=== PATIENT | female | born 1960 | race African-American/Black ===

== ENCOUNTER 2017-06-23 19:25 | Inpatient (IN) ==
[2017-06-23] MEDS ORDERED: ACETAMINOPHEN 325 MG TABLET PO PRN (22:35)
[2017-06-23] MEDS: SODIUM CHLORIDE 0.9% 1,000 ML IV SCH (22:55)
[2017-06-23] MEDS: metroNIDAZOLE INJ 500 MG in PREMIX 1 EACH IV SCH (23:46)
[2017-06-24] MEDS: PIPERACILLIN/TAZOBACTAM 3,375 MG in SODIUM CHLORIDE 0.9% 100 ML IV SCH ×3 (01:47→17:32)
[2017-06-24] MEDS: HYDROmorphone 2 MG/1 ML VIAL IV PRN ×2 (01:51→20:08)
[2017-06-24] MEDS: metroNIDAZOLE INJ 500 MG in PREMIX 1 EACH IV SCH ×3 (06:27→22:50)
[2017-06-24 07:35] LABS: Basophils % 0.3 % (0.0-0.8); Eosinophils # 0.1 10*3/uL (0.0-0.87); Eosinophils % 0.6 % (0.00-10.9); Hematocrit 33.6 VOL% (35.7-47.0); Immature Granulocytes % 0.6 %; Immature Granulocytes Absolute 0.09 #; Lymphocytes % 6.7 % (21.3-54.2); Mean Corpuscular HGB Conc 32.7 GM/DL (32-36); Mean Corpuscular Hemoglobin 21 PG (27-34); Mean Corpuscular Volume 64.9 FL (87-102); Mean Platelet Volume 9.2 FL (9.6-12.0); Monocytes # 1.2 10*3/uL (0.11-0.8); Monocytes % 7.9 % (1.7-12.7); Neutrophils # 12.8 10*3/uL (1.4-7.4); Neutrophils % 83.9 % (38.7-73.9); Platelet Count 478 T/CUMM (130-400); Red Blood Count 5.18 MC/CUMM (3.8-5.5); Red Cell Distribution Width 14.5 % (9.3-17.3); White Blood Count 15.2 T/CUMM (4-12)
[2017-06-24 08:18] LABS: Albumin 2.6 G/DL (3.4-5.0); Bilirubin,Total 0.5 MG/DL (0.2-1.0); Calcium 8.4 MG/DL (8.5-10.1); Magnesium 2.1 MG/DL (1.8-2.4); Osmolality,Calculated 278.4 MOS/KG (273-304); Potassium 4.2 MMOL/L (3.5-5.1); Total Protein 6.7 G/DL (6.4-8.3)
[2017-06-24] MEDS: PANTOPRAZOLE 40 MG VIAL IV SCH (09:40)
[2017-06-24] MEDS: MELOXICAM 7.5 MG TABLET PO SCH (09:41)
[2017-06-24] MEDS: SODIUM CHLORIDE 0.9% 1,000 ML IV SCH (17:33)
[2017-06-24] MEDS: ONDANSETRON 4 MG/2 ML VIAL IV PRN (20:05)
[2017-06-25] MEDS: SODIUM CHLORIDE 0.9% 1,000 ML IV SCH ×4 (01:18→21:31)
[2017-06-25] MEDS: PIPERACILLIN/TAZOBACTAM 3,375 MG in SODIUM CHLORIDE 0.9% 100 ML IV SCH ×2 (02:59→10:52)
[2017-06-25 04:38] LABS: Basophils % 0.3 % (0.0-0.8); Eosinophils # 0.1 10*3/uL (0.0-0.87); Eosinophils % 1.1 % (0.00-10.9); Hematocrit 30.7 VOL% (35.7-47.0); Hemoglobin 10.1 GM/DL (12.0-16.0); Immature Granulocytes % 0.5 %; Immature Granulocytes Absolute 0.06 #; Lymphocytes # 1.6 10*3/uL (1.4-4.0); Lymphocytes % 12.5 % (21.3-54.2); Mean Corpuscular HGB Conc 32.9 GM/DL (32-36); Mean Corpuscular Hemoglobin 21 PG (27-34); Mean Corpuscular Volume 64.5 FL (87-102); Mean Platelet Volume 10.4 FL (9.6-12.0); Monocytes # 1.2 10*3/uL (0.11-0.8); Neutrophils # 9.9 10*3/uL (1.4-7.4); Neutrophils % 76.6 % (38.7-73.9); Platelet Count 496 T/CUMM (130-400); Red Blood Count 4.76 MC/CUMM (3.8-5.5); Red Cell Distribution Width 14.5 % (9.3-17.3)
[2017-06-25 05:22] LABS: Calcium 8.1 MG/DL (8.5-10.1); Magnesium 1.9 MG/DL (1.8-2.4); Osmolality,Calculated 280.1 MOS/KG (273-304); Potassium 3.8 MMOL/L (3.5-5.1)
[2017-06-25] MEDS: metroNIDAZOLE INJ 500 MG in PREMIX 1 EACH IV SCH ×2 (06:37→07:25)
[2017-06-25] MEDS: ONDANSETRON 4 MG/2 ML VIAL IV PRN ×3 (07:32→18:30)
[2017-06-25] MEDS: MELOXICAM 7.5 MG TABLET PO SCH (10:47)
[2017-06-25] MEDS: PANTOPRAZOLE 40 MG VIAL IV SCH (10:49)
[2017-06-25] MEDS: metroNIDAZOLE 500 MG TABLET PO SCH ×2 (17:05→21:27)
[2017-06-25] MEDS: CIPROFLOXACIN 500 MG TABLET PO SCH (21:27)
[2017-06-26] MEDS: ONDANSETRON 4 MG/2 ML VIAL IV PRN ×2 (00:29→10:23)
[2017-06-26] MEDS: metroNIDAZOLE 500 MG TABLET PO SCH ×2 (06:43→17:48)
[2017-06-26 07:07] LABS: Basophils % 0.3 % (0.0-0.8); Eosinophils # 0.1 10*3/uL (0.0-0.87); Eosinophils % 0.9 % (0.00-10.9); Hematocrit 31.9 VOL% (35.7-47.0); Hemoglobin 10.6 GM/DL (12.0-16.0); Immature Granulocytes % 0.6 %; Immature Granulocytes Absolute 0.07 #; Lymphocytes # 1.5 10*3/uL (1.4-4.0); Lymphocytes % 11.9 % (21.3-54.2); Mean Corpuscular HGB Conc 33.2 GM/DL (32-36); Mean Corpuscular Hemoglobin 21 PG (27-34); Mean Corpuscular Volume 64.1 FL (87-102); Mean Platelet Volume 9.8 FL (9.6-12.0); Monocytes # 0.8 10*3/uL (0.11-0.8); Monocytes % 6.6 % (1.7-12.7); Neutrophils # 9.8 10*3/uL (1.4-7.4); Neutrophils % 79.7 % (38.7-73.9); Platelet Count 512 T/CUMM (130-400); Red Blood Count 4.98 MC/CUMM (3.8-5.5); Red Cell Distribution Width 14.5 % (9.3-17.3); White Blood Count 12.2 T/CUMM (4-12)
[2017-06-26 07:26] LABS: Calcium 8.1 MG/DL (8.5-10.1); Magnesium 1.9 MG/DL (1.8-2.4); Osmolality,Calculated 275.4 MOS/KG (273-304); Potassium 3.6 MMOL/L (3.5-5.1)
[2017-06-26] MEDS: PANTOPRAZOLE 40 MG VIAL IV SCH (10:27)
[2017-06-26] MEDS: SODIUM CHLORIDE 0.9% 1,000 ML IV SCH (11:13)
[2017-06-26] MEDS ORDERED: PROMETHAZINE 25 MG/1 ML VIAL IM PRN (14:24)
[2017-06-26] MEDS: CIPROFLOXACIN 500 MG TABLET PO SCH (17:48)
[2017-06-26] MEDS: PIPERACILLIN/TAZOBACTAM 3,375 MG in SODIUM CHLORIDE 0.9% 100 ML IV SCH (18:37)
[2017-06-26] MEDS: MELOXICAM 7.5 MG TABLET PO SCH (19:22)
[2017-06-27] MEDS: PIPERACILLIN/TAZOBACTAM 3,375 MG in SODIUM CHLORIDE 0.9% 100 ML IV SCH ×3 (02:59→18:07)
[2017-06-27 05:29] LABS: Basophils % 0.3 % (0.0-0.8); Eosinophils # 0.1 10*3/uL (0.0-0.87); Eosinophils % 0.8 % (0.00-10.9); Hematocrit 32.4 VOL% (35.7-47.0); Hemoglobin 10.7 GM/DL (12.0-16.0); Immature Granulocytes % 0.5 %; Immature Granulocytes Absolute 0.06 #; Lymphocytes # 1.7 10*3/uL (1.4-4.0); Lymphocytes % 13.1 % (21.3-54.2); Magnesium 1.9 MG/DL (1.8-2.4); Mean Corpuscular Hemoglobin 21 PG (27-34); Mean Corpuscular Volume 64.5 FL (87-102); Mean Platelet Volume 9.8 FL (9.6-12.0); Monocytes # 1.1 10*3/uL (0.11-0.8); Monocytes % 8.5 % (1.7-12.7); Neutrophils # 10.1 10*3/uL (1.4-7.4); Neutrophils % 76.8 % (38.7-73.9); Osmolality,Calculated 277.3 MOS/KG (273-304); Platelet Count 511 T/CUMM (130-400); Potassium 3.5 MMOL/L (3.5-5.1); Red Blood Count 5.02 MC/CUMM (3.8-5.5); Red Cell Distribution Width 14.6 % (9.3-17.3); White Blood Count 13.2 T/CUMM (4-12)
[2017-06-27] MEDS: MELOXICAM 7.5 MG TABLET PO SCH (09:40)
[2017-06-27] MEDS: PANTOPRAZOLE 40 MG VIAL IV SCH (12:56)
[2017-06-27] MEDS: SODIUM CHLORIDE 0.9% 1,000 ML IV SCH (13:02)
[2017-06-27] MEDS: ONDANSETRON 4 MG/2 ML VIAL IV PRN (14:47)
[2017-06-28] MEDS: ONDANSETRON 4 MG/2 ML VIAL IV PRN ×2 (02:02→09:21)
[2017-06-28] MEDS: PIPERACILLIN/TAZOBACTAM 3,375 MG in SODIUM CHLORIDE 0.9% 100 ML IV SCH ×3 (02:05→17:30)
[2017-06-28] MEDS: SODIUM CHLORIDE 0.9% 1,000 ML IV SCH ×3 (06:44→22:10)
[2017-06-28] MEDS: MELOXICAM 7.5 MG TABLET PO SCH (09:08)
[2017-06-28] MEDS: PANTOPRAZOLE 40 MG VIAL IV SCH (09:08)
[2017-06-28] MEDS ORDERED: DIAZEPAM 5 MG TABLET PO ONE (12:19)
[2017-06-28] MEDS ORDERED: fentaNYL 100 MCG/2 ML VIAL IV ONE (12:19)
[2017-06-28] MEDS ORDERED: MIDAZOLAM 2 MG/2 ML VIAL IV ONE (12:19)
[2017-06-28] MEDS: HYDROmorphone 2 MG/1 ML VIAL IV PRN ×2 (15:00→21:45)
[2017-06-28] MEDS ORDERED: HYDROmorphone 2 MG/1 ML VIAL ONE (15:01)
[2017-06-29] MEDS: PIPERACILLIN/TAZOBACTAM 3,375 MG in SODIUM CHLORIDE 0.9% 100 ML IV SCH ×3 (02:59→17:27)
[2017-06-29 05:13] LABS: Basophils % 0.3 % (0.0-0.8); Eosinophils # 0.1 10*3/uL (0.0-0.87); Hematocrit 33.4 VOL% (35.7-47.0); Immature Granulocytes % 0.6 %; Immature Granulocytes Absolute 0.08 #; Lymphocytes # 1.5 10*3/uL (1.4-4.0); Lymphocytes % 10.4 % (21.3-54.2); Mean Corpuscular HGB Conc 32.9 GM/DL (32-36); Mean Corpuscular Hemoglobin 21 PG (27-34); Mean Corpuscular Volume 64.6 FL (87-102); Mean Platelet Volume 9.6 FL (9.6-12.0); Monocytes # 0.8 10*3/uL (0.11-0.8); Neutrophils # 11.4 10*3/uL (1.4-7.4); Neutrophils % 81.7 % (38.7-73.9); Platelet Count 499 T/CUMM (130-400); Red Blood Count 5.17 MC/CUMM (3.8-5.5); Red Cell Distribution Width 14.7 % (9.3-17.3)
[2017-06-29 05:51] LABS: Calcium 8.5 MG/DL (8.5-10.1); Magnesium 1.9 MG/DL (1.8-2.4); Osmolality,Calculated 280.1 MOS/KG (273-304); Potassium 3.6 MMOL/L (3.5-5.1)
[2017-06-29] MEDS: MELOXICAM 7.5 MG TABLET PO SCH (09:14)
[2017-06-29] MEDS: PANTOPRAZOLE 40 MG VIAL IV SCH (09:15)
[2017-06-29] MEDS: ONDANSETRON 4 MG/2 ML VIAL IV PRN (20:34)
[2017-06-30] MEDS: PIPERACILLIN/TAZOBACTAM 3,375 MG in SODIUM CHLORIDE 0.9% 100 ML IV SCH ×2 (01:22→11:21)
[2017-06-30 06:20] LABS: Basophils % 0.1 % (0.0-0.8); Eosinophils # 0.1 10*3/uL (0.0-0.87); Eosinophils % 0.7 % (0.00-10.9); Hematocrit 33.4 VOL% (35.7-47.0); Hemoglobin 11.1 GM/DL (12.0-16.0); Immature Granulocytes % 0.6 %; Immature Granulocytes Absolute 0.08 #; Lymphocytes # 1.3 10*3/uL (1.4-4.0); Lymphocytes % 9.1 % (21.3-54.2); Mean Corpuscular HGB Conc 33.2 GM/DL (32-36); Mean Corpuscular Hemoglobin 21 PG (27-34); Mean Platelet Volume 10.1 FL (9.6-12.0); Monocytes # 0.8 10*3/uL (0.11-0.8); Monocytes % 5.8 % (1.7-12.7); Neutrophils # 11.7 10*3/uL (1.4-7.4); Neutrophils % 83.7 % (38.7-73.9); Platelet Count 525 T/CUMM (130-400); Red Blood Count 5.22 MC/CUMM (3.8-5.5); Red Cell Distribution Width 14.6 % (9.3-17.3); White Blood Count 13.9 T/CUMM (4-12)
[2017-06-30] MEDS: MELOXICAM 7.5 MG TABLET PO SCH (09:38)
[2017-06-30] MEDS: ONDANSETRON 4 MG/2 ML VIAL IV PRN ×2 (09:42→17:30)
[2017-06-30] MEDS: PANTOPRAZOLE 40 MG VIAL IV SCH (09:46)
[2017-06-30] MEDS: CIPROFLOXACIN INJ 400 MG in PREMIX 1 EACH IV SCH (18:52)
[2017-07-01] MEDS: CIPROFLOXACIN INJ 400 MG in PREMIX 1 EACH IV SCH (03:50)
[2017-07-01] MEDS: ONDANSETRON 4 MG/2 ML VIAL IV PRN ×2 (06:31→19:38)
[2017-07-01 06:54] LABS: Basophils % 0.3 % (0.0-0.8); Eosinophils # 0.2 10*3/uL (0.0-0.87); Eosinophils % 1.9 % (0.00-10.9); Hematocrit 32.7 VOL% (35.7-47.0); Immature Granulocytes % 0.6 %; Immature Granulocytes Absolute 0.06 #; Lymphocytes # 1.4 10*3/uL (1.4-4.0); Lymphocytes % 12.6 % (21.3-54.2); Mean Corpuscular HGB Conc 33.6 GM/DL (32-36); Mean Corpuscular Hemoglobin 21 PG (27-34); Mean Corpuscular Volume 63.4 FL (87-102); Mean Platelet Volume 9.1 FL (9.6-12.0); Monocytes # 0.8 10*3/uL (0.11-0.8); Monocytes % 6.9 % (1.7-12.7); Neutrophils # 8.4 10*3/uL (1.4-7.4); Neutrophils % 77.7 % (38.7-73.9); Platelet Count 455 T/CUMM (130-400); Red Blood Count 5.16 MC/CUMM (3.8-5.5); Red Cell Distribution Width 14.7 % (9.3-17.3); White Blood Count 10.8 T/CUMM (4-12)
[2017-07-01 07:29] LABS: Calcium 8.1 MG/DL (8.5-10.1); Magnesium 1.8 MG/DL (1.8-2.4); Osmolality,Calculated 273.5 MOS/KG (273-304); Potassium 3.5 MMOL/L (3.5-5.1)
[2017-07-01] MEDS: MELOXICAM 7.5 MG TABLET PO SCH (08:47)
[2017-07-01] MEDS: PANTOPRAZOLE 40 MG VIAL IV SCH (08:48)
[2017-07-01] MEDS: CIPROFLOXACIN 500 MG TABLET PO SCH (20:31)
[2017-07-02] MEDS: PANTOPRAZOLE 40 MG VIAL IV SCH (10:53)
[2017-07-02] MEDS: MELOXICAM 7.5 MG TABLET PO SCH (10:54)
[2017-07-02] MEDS: CIPROFLOXACIN 500 MG TABLET PO SCH ×2 (10:54→20:39)
[2017-07-03 08:39] VITALS: BP 149/84
== END 2017-07-03 08:34 | disposition home health service (06) | DRG 392 ==
LOC: N.ED 19:25 → N.EDINP 20:48 → N.3E 21:52
PROVIDERS: ADMIT Surgery; ATTEND Surgery

== ENCOUNTER 2020-08-16 21:17 | Inpatient (IN) ==
[2020-08-17] MEDS ORDERED: DEXTROSE 50% 25 GM/50 ML VIAL IV PRN (01:10)
[2020-08-17] MEDS ORDERED: hydrALAZINE 20 MG/1 ML VIAL IV PRN (01:10)
[2020-08-17] MEDS ORDERED: GLUCAGON 1 MG VIAL IM PRN (01:10)
[2020-08-17] MEDS ORDERED: NICOTINE 21 MG/24 HR PATCH TRANSDERM PRN (01:10)
[2020-08-17] MEDS ORDERED: SODIUM CHLORIDE 0.9% 1,000 ML IV SCH (01:30)
[2020-08-17 02:06] LABS: Basophils % 0.2 % (0.0-0.8); Eosinophils % 0.2 % (0.00-10.9); Hematocrit 45.5 VOL% (35.7-47.0); Hemoglobin 14.1 GM/DL (12.0-16.0); Immature Granulocytes % 0.5 %; Lymphocytes # 1.6 10*3/uL (1.4-4.0); Lymphocytes % 8.3 % (21.3-54.2); Mean Corpuscular Volume 71.1 FL (87-102); Mean Platelet Volume 9.4 FL (9.6-12.0); Monocytes % 5.2 % (1.7-12.7); Neutrophils % 85.6 % (38.7-73.9); Platelet Count 358 T/CUMM (130-400); Red Cell Distribution Width 16.7 % (9.3-17.3); White Blood Count 18.8 T/CUMM (4-12)
[2020-08-17 02:29] LABS: Albumin 3.3 G/DL (3.4-5.0); Bilirubin,Total 0.7 MG/DL (0.2-1.0); Calcium 8.5 MG/DL (8.5-10.1); Osmolality,Calculated 278.5 MOS/KG (273-304); Potassium 4.1 MMOL/L (3.5-5.1); Risk Ratio 3.75; Total Protein 7.5 G/DL (6.4-8.3); VLDL CHOLESTEROL 12.8 MG/DL
[2020-08-17] MEDS: MORPHINE 4 MG/1 ML VIAL IV PRN ×4 (04:34→23:14)
[2020-08-17] MEDS: ONDANSETRON 4 MG/2 ML VIAL IV PRN ×3 (04:37→22:29)
[2020-08-17] MEDS: PIPERACILLIN/TAZOBACTAM 3,375 MG in SODIUM CHLORIDE 0.9% 100 ML IV SCH ×3 (08:14→23:58)
[2020-08-17 12:14] LABS: Bilirubin,Urine Negative (Negative); Blood, Urine Negative (Negative); Glucose,Urine (UA) Negative (Negative); Ketones,Urine Negative (Negative); Nitrite,Urine Negative (Negative); Protein,Urine 30 MG/DL; Urine Appearance CLEAR (Clear); Urine Specific Gravity > 1.060 (1.001-1.035); Urine Urobilinogen < 2.0 EU/DL (0.2-1.0)
[2020-08-17 12:26] LABS: Urine Color Yellow (Yellow)
[2020-08-17 12:27] LABS: Bacteria,Urine Occasional /HPF (Few); RBC,Urine 0-1 /HPF (0-4); Squamous Epithelial Cell,Urine Few /HPF (0-10)
[2020-08-17] MEDS: FAT EMULSION 20% 250 ML IV SCH (16:06)
[2020-08-17] MEDS: TRACE ELEMENTS (5) 1 ML in AMINO ACIDS/DEXT/LYTES 4.25-5% 2,000 ML IV SCH (17:50)
[2020-08-18] MEDS: ONDANSETRON 4 MG/2 ML VIAL IV PRN ×4 (03:42→23:18)
[2020-08-18] MEDS: MORPHINE 4 MG/1 ML VIAL IV PRN ×3 (04:09→23:15)
[2020-08-18 06:04] LABS: Basophils % 0.2 % (0.0-0.8); Eosinophils # 0.6 10*3/uL (0.0-0.87); Hematocrit 39.1 VOL% (35.7-47.0); Immature Granulocytes % 0.6 %; Immature Granulocytes Absolute 0.07 #; Lymphocytes # 1.7 10*3/uL (1.4-4.0); Lymphocytes % 13.7 % (21.3-54.2); Mean Corpuscular HGB Conc 30.7 GM/DL (32-36); Mean Corpuscular Volume 71.6 FL (87-102); Mean Platelet Volume 9.5 FL (9.6-12.0); Monocytes % 6.9 % (1.7-12.7); Neutrophils % 73.6 % (38.7-73.9); Platelet Count 307 T/CUMM (130-400); Red Blood Count 5.46 MC/CUMM (3.8-5.5); Red Cell Distribution Width 15.9 % (9.3-17.3)
[2020-08-18 06:20] LABS: White Blood Count 12.5 T/CUMM (4-12)
[2020-08-18] MEDS: PIPERACILLIN/TAZOBACTAM 3,375 MG in SODIUM CHLORIDE 0.9% 100 ML IV SCH ×3 (06:30→23:31)
[2020-08-18 06:37] LABS: Calcium 8.1 MG/DL (8.5-10.1); Osmolality,Calculated 282.4 MOS/KG (273-304); Potassium 3.5 MMOL/L (3.5-5.1)
[2020-08-18] MEDS: TRACE ELEMENTS (5) 1 ML in AMINO ACIDS/DEXT/LYTES 4.25-5% 2,000 ML IV SCH (16:54)
[2020-08-19] MEDS: MORPHINE 4 MG/1 ML VIAL IV PRN ×3 (05:49→22:52)
[2020-08-19 05:51] LABS: Basophils % 0.2 % (0.0-0.8); Eosinophils # 0.4 10*3/uL (0.0-0.87); Eosinophils % 4.1 % (0.00-10.9); Hematocrit 38.4 VOL% (35.7-47.0); Hemoglobin 11.9 GM/DL (12.0-16.0); Immature Granulocytes % 0.4 %; Immature Granulocytes Absolute 0.04 #; Lymphocytes # 1.3 10*3/uL (1.4-4.0); Mean Corpuscular Volume 71.1 FL (87-102); Mean Platelet Volume 9.6 FL (9.6-12.0); Monocytes % 8.2 % (1.7-12.7); Neutrophils % 73.1 % (38.7-73.9); Platelet Count 299 T/CUMM (130-400); Red Cell Distribution Width 15.6 % (9.3-17.3); White Blood Count 9.4 T/CUMM (4-12)
[2020-08-19 06:19] LABS: Calcium 8.7 MG/DL (8.5-10.1); Osmolality,Calculated 284.3 MOS/KG (273-304); Potassium 3.6 MMOL/L (3.5-5.1)
[2020-08-19] MEDS: FAT EMULSION 20% 250 ML IV SCH (09:45)
[2020-08-19] MEDS: ONDANSETRON 4 MG/2 ML VIAL IV PRN ×2 (13:09→22:50)
[2020-08-19] MEDS: PIPERACILLIN/TAZOBACTAM 3,375 MG in SODIUM CHLORIDE 0.9% 100 ML IV SCH ×2 (15:05→17:51)
[2020-08-19] MEDS: ENOXAPARIN 40 MG/0.4 ML SYRINGE SUBCUT SCH (15:43)
[2020-08-19] MEDS ORDERED: TRACE ELEMENTS (5) 1 ML, MULTIVITAMIN INJ 10 ML in AMINO ACIDS/DEXT/LYTES 4.25-5% 2,000 ML IV SCH (17:00)
[2020-08-20] MEDS: PIPERACILLIN/TAZOBACTAM 3,375 MG in SODIUM CHLORIDE 0.9% 100 ML IV SCH ×3 (02:39→18:01)
[2020-08-20 06:12] LABS: Calcium 8.3 MG/DL (8.5-10.1)
[2020-08-20 06:25] LABS: Basophils % 0.2 % (0.0-0.8); Eosinophils # 0.4 10*3/uL (0.0-0.87); Eosinophils % 4.5 % (0.00-10.9); Hematocrit 41.5 VOL% (35.7-47.0); Immature Granulocytes % 0.5 %; Immature Granulocytes Absolute 0.04 #; Lymphocytes # 1.3 10*3/uL (1.4-4.0); Lymphocytes % 14.1 % (21.3-54.2); Mean Corpuscular HGB Conc 31.1 GM/DL (32-36); Mean Corpuscular Volume 74.1 FL (87-102); Mean Platelet Volume 9.8 FL (9.6-12.0); Monocytes % 7.8 % (1.7-12.7); Neutrophils % 72.9 % (38.7-73.9); Platelet Count 214 T/CUMM (130-400); Red Cell Distribution Width 17.4 % (9.3-17.3); White Blood Count 8.9 T/CUMM (4-12)
[2020-08-20 06:26] LABS: Hemoglobin 12.9 GM/DL (12.0-16.0)
[2020-08-20] MEDS: ENOXAPARIN 40 MG/0.4 ML SYRINGE SUBCUT SCH (13:15)
[2020-08-20] MEDS: ONDANSETRON 4 MG/2 ML VIAL IV PRN (16:09)
[2020-08-20] MEDS: MORPHINE 4 MG/1 ML VIAL IV PRN ×2 (16:09→22:35)
[2020-08-21] MEDS: PIPERACILLIN/TAZOBACTAM 3,375 MG in SODIUM CHLORIDE 0.9% 100 ML IV SCH ×2 (02:44→09:47)
[2020-08-21 05:39] LABS: Basophils % 0.3 % (0.0-0.8); Eosinophils # 0.4 10*3/uL (0.0-0.87); Eosinophils % 4.3 % (0.00-10.9); Hematocrit 39.6 VOL% (35.7-47.0); Hemoglobin 12.9 GM/DL (12.0-16.0); Immature Granulocytes % 0.4 %; Immature Granulocytes Absolute 0.04 #; Lymphocytes # 1.7 10*3/uL (1.4-4.0); Lymphocytes % 16.8 % (21.3-54.2); Mean Corpuscular HGB Conc 32.6 GM/DL (32-36); Mean Corpuscular Volume 69.1 FL (87-102); Mean Platelet Volume 9.7 FL (9.6-12.0); Monocytes % 6.8 % (1.7-12.7); Neutrophils % 71.4 % (38.7-73.9); Platelet Count 283 T/CUMM (130-400); Red Blood Count 5.73 MC/CUMM (3.8-5.5); White Blood Count 9.9 T/CUMM (4-12)
[2020-08-21 06:02] LABS: Calcium 8.5 MG/DL (8.5-10.1); Osmolality,Calculated 278.4 MOS/KG (273-304); Potassium 3.5 MMOL/L (3.5-5.1)
[2020-08-21] MEDS ORDERED: MELOXICAM 7.5 MG TABLET PO SCH (09:00)
[2020-08-21] MEDS: ENOXAPARIN 40 MG/0.4 ML SYRINGE SUBCUT SCH (15:01)
[2020-08-21 20:57] VITALS: BP 124/61
== END 2020-08-21 16:06 | disposition home or self-care (01) | DRG 389 ==
LOC: INTOOBSV 08-17 00:44 → N.3E 08-17 00:44 → SUATTDRO 08-17 00:44
PROVIDERS: ADMIT Internal Medicine; ATTEND Internal Medicine